=== PATIENT | female | born 1970 | race Caucasian/White ===

== ENCOUNTER 2019-03-14 17:33 | Outpatient (CLI) | payer OTHER, SELFPAY ==
--- NOTE | ~2019-03-14 | CT_ITS ---
EXAMINATION: CT abdomen pelvis w con DATE: 03/14/2019 18:11 INDICATION: Diarrhea. Lower abdominal pain. TECHNIQUE: Computed tomography (CT) of the abdomen and pelvis was performed with 100 mL Omnipaque-350 intravenous contrast. Automated exposure control and iterative reconstruction technique were employe d. The dose-length product was 880.07 mGy-cm. COMPARISON: None FINDINGS: Subtle mosaic attenuation in the dependent aspect of the lower lobes likely minimal dependent atelect asis with intervening subsegmental air trapping related to small airway disease. Heart size is normal . No pericardial or pleural effusion. Liver, gallbladder, spleen, pancreas, bilateral adrenal glands and right kidney are normal. Regions of cortical scarring scattered throughout the left kidney, likel y sequela of prior infection or infarction. Appendix is not visualized likely surgically absent with suture line at the tip of the cecum. No bowel obstruction or abnormal bowel wall thickening. Bladder is normal. The uterus is not identified and has likely been surgically resected. No free intraperiton eal gas or fluid. No pathologically enlarged abdominal or pelvic lymphadenopathy. Mild lumbar spondyl osis. IMPRESSION: 1. No acute intra-abdominal/pelvic process. Reviewed, dictated and finalized at location A. WASHING MACHINE REPAIRER
[2019-03-14 18:00] LABS: Blood Urea Nitrogen 21 mg/dL (8-26); Estimated Glomerular Filt Rate > 60
== END 2019-03-14 17:34 | disposition home or self-care (01) ==
LOC: ANHIMG 17:40
PROVIDERS: PCP Family Medicine; Visit Provider Nurse Practitioner Family
DX: R10.9 Unspecified abdominal pain (principal)
CPT/HCPCS: 74177; Q9967

== ENCOUNTER 2020-03-09 11:14 | Outpatient (CLI) | payer OTHER, SELFPAY ==
--- NOTE | ~2020-03-09 | XR_ITS ---
XR foot RT min 3V DATE: 03/09/2020 11:53 INDICATION: Right lateral foot pain. TECHNIQUE: 4 views COMPARISON: None FINDINGS: 2 screws are noted traversing the first tarsometatarsal joint. Plantar calcaneal enthesopathy. Hallux valgus and bunion deformity. Osteoarthritis at the first metatarsophalangeal joint. No fracture or dislocation, periosteal reaction or bone destruction. IMPRESSION: Status post surgical fusion at the first tarsometatarsal joint Hallux valgus and bunion deformity Osteoarthritis at first metatarsophalangeal joint Plantar calcaneal enthesopathy Reviewed, dictated and finalized at location A. R GLASS WORKER
[2020-03-09 11:43] LABS: Basophils Absolute Auto 0.1 K/mm3 (0.0-0.1); Basophils Percent Auto 0.9 % (0.2-1.2); Eosinophils Absolute Auto 0.4 K/mm3 (0-0.3); Eosinophils Percent Auto 5.6 % (0-4.4); Hematocrit 41.4 % (37.0-47.0); Hemoglobin 14.2 g/dL (12.0-15.0); Immature Granulocyte Absolute 0.01 K/mm3 (0.00-0.031); Immature Granulocyte Percent A 0.2 % (0-0.5); Lymphocytes Absolute Auto 2.08 K/mm3 (0.9-3.2); Lymphocytes Percent Auto 32.5 % (18.3-44.2); Mean Corpuscular HGB Conc 34.3 g/dl (32-36); Mean Corpuscular Hemoglobin 32.6 pg (26-34); Mean Platelet Volume 9.6 fl (7.4-10.4); Monocytes Absolute Auto 0.7 K/mm3 (0.1-0.6); Monocytes Percent Auto 10.5 % (2.6-8.5); Neutrophils Absolute Auto 3.2 K/mm3 (1.3-6.7); Neutrophils Percent Auto 50.3 % (45.5-73.1); Platelet Count Result 339 k/mm3 (150-375); Red Blood Count 4.36 M/mm3 (4.2-5.4); Red Cell Distribution Width 12.8 % (11.5-14.5); White Blood Count 6.4 K/mm3 (4.5-10.0)
[2020-03-09 12:10] LABS: LDL Cholesterol Direct 152 mg/dL
[2020-03-09 12:20] LABS: Alanine Aminotransferase 21 U/L (4-35); Albumin Level 4.5 g/dL (3.5-5.1); Alkaline Phosphatase 66 U/L (38-126); Anion Gap 2 mmol/L (8-16); Aspartate Amino Transferase 29 U/L (14-36); Bilirubin,Total 0.6 mg/dL (0.2-1.3); Blood Urea Nitrogen 19 mg/dL (7-17); Calcium 9.4 mg/dL (8.4-10.2); Carbon Dioxide 28 mmol/L (22-30); Chloride 105 mmol/L (98-107); Cholesterol 221 mg/dL (0-200); Estimated Glomerular Filt Rate > 60; Glucose 94 mg/dL (65-105); HDL Direct 43 mg/dL; Potassium 4.2 mmol/L (3.4-5.0); Sodium 135 mmol/L (137-145); Triglycerides 110 mg/dL (<150)
== END 2020-03-09 11:15 | disposition home or self-care (01) ==
PROVIDERS: PCP Family Medicine; Visit Provider Physician Assistant
DX: M79.671 Pain in right foot (principal); Z98.890 Other specified postprocedural states; I10 Essential (primary) hypertension; Z13.220 Encounter for screening for lipoid disorders; R53.83 Other fatigue
CPT/HCPCS: 36415; 73630; 80053; 80061; 84443; 85025

== ENCOUNTER 2021-01-27 17:31 | Outpatient (CLI) | payer OTHER, SELFPAY ==
[2021-01-27 18:05] LABS: Basophils Absolute Auto 0.1 K/mm3 (0.0-0.1); Basophils Percent Auto 0.5 % (0.2-1.2); Eosinophils Absolute Auto 0.4 K/mm3 (0-0.3); Hematocrit 41.1 % (37.0-47.0); Hemoglobin 13.9 g/dL (12.0-15.0); Immature Granulocyte Absolute 0.02 K/mm3 (0.00-0.031); Immature Granulocyte Percent A 0.2 % (0-0.5); Lymphocytes Absolute Auto 2.39 K/mm3 (0.9-3.2); Lymphocytes Percent Auto 23.3 % (18.3-44.2); Mean Corpuscular HGB Conc 33.8 g/dl (32-36); Mean Corpuscular Hemoglobin 32.4 pg (26-34); Mean Corpuscular Volume 95.8 fl (80-100); Mean Platelet Volume 9.7 fl (7.4-10.4); Monocytes Absolute Auto 0.9 K/mm3 (0.1-0.6); Monocytes Percent Auto 8.9 % (2.6-8.5); Neutrophils Absolute Auto 6.5 K/mm3 (1.3-6.7); Neutrophils Percent Auto 63.1 % (45.5-73.1); Platelet Count Result 352 k/mm3 (150-375); Red Blood Count 4.29 M/mm3 (4.2-5.4); Red Cell Distribution Width 13.4 % (11.5-14.5); White Blood Count 10.3 K/mm3 (4.5-10.0)
[2021-01-27 18:08] LABS: Alanine Aminotransferase 20 U/L (4-35); Albumin Level 4.7 g/dL (3.5-5.1); Alkaline Phosphatase 96 U/L (38-126); Anion Gap 7 mmol/L (8-16); Aspartate Amino Transferase 27 U/L (14-36); Bilirubin,Total 0.3 mg/dL (0.2-1.3); Blood Urea Nitrogen 14 mg/dL (7-17); Calcium 9.4 mg/dL (8.4-10.2); Carbon Dioxide 26 mmol/L (22-30); Chloride 101 mmol/L (98-107); Cholesterol 235 mg/dL (0-200); Estimated Glomerular Filt Rate > 60; Glucose 118 mg/dL (65-110); HDL Direct 50 mg/dL; Potassium 3.9 mmol/L (3.4-5.0); Sodium 134 mmol/L (137-145); Triglycerides 205 mg/dL (<150)
[2021-01-27 18:19] LABS: LDL Cholesterol Direct 144 mg/dL
== END 2021-01-27 17:32 | disposition home or self-care (01) ==
LOC: ANHLAB 17:35
PROVIDERS: PCP Family Medicine; Visit Provider Nurse Practitioner Gerontology
DX: I10 Essential (primary) hypertension (principal)
CPT/HCPCS: 36415; 80053; 80061; 85025

== ENCOUNTER 2021-02-24 13:44 | Outpatient (CLI) | payer OTHER, SELFPAY ==
[2021-02-24 14:28] LABS: Uric Acid 6.1 mg/dL (2.5-7.5)
[2021-02-24 14:42] LABS: Basophils Absolute Auto 0.1 K/mm3 (0.0-0.1); Basophils Percent Auto 0.5 % (0.2-1.2); Eosinophils Absolute Auto 0.1 K/mm3 (0-0.3); Eosinophils Percent Auto 1.1 % (0-4.4); Hematocrit 42.2 % (37.0-47.0); Hemoglobin 14.4 g/dL (12.0-15.0); Immature Granulocyte Absolute 0.04 K/mm3 (0.00-0.031); Immature Granulocyte Percent A 0.4 % (0-0.5); Lymphocytes Absolute Auto 1.04 K/mm3 (0.9-3.2); Lymphocytes Percent Auto 10.8 % (18.3-44.2); Mean Corpuscular HGB Conc 34.1 g/dl (32-36); Mean Corpuscular Volume 96.6 fl (80-100); Mean Platelet Volume 9.6 fl (7.4-10.4); Monocytes Absolute Auto 0.3 K/mm3 (0.1-0.6); Monocytes Percent Auto 3.1 % (2.6-8.5); Neutrophils Absolute Auto 8.1 K/mm3 (1.3-6.7); Neutrophils Percent Auto 84.1 % (45.5-73.1); Platelet Count Result 380 k/mm3 (150-375); Red Blood Count 4.37 M/mm3 (4.2-5.4); Red Cell Distribution Width 13.2 % (11.5-14.5); White Blood Count 9.6 K/mm3 (4.5-10.0)
[2021-02-24 15:10] LABS: Erythrocyte Sedimentation Rate 17 mm/hr (0-20)
[2021-02-25 00:04] LABS: Rheumatoid Factor < 8.6 IU/ML (<12)
[2021-02-27 22:29] LABS: Anti Cyclic Citrullinated Pept <16 Units (<20)
== END 2021-02-24 13:45 | disposition home or self-care (01) ==
PROVIDERS: PCP Family Medicine; Visit Provider Family Medicine
DX: M65.871 Other synovitis and tenosynovitis, right ankle and foot (principal); M06.4 Inflammatory polyarthropathy
CPT/HCPCS: 36415; 84550; 85025; 85652; 86038; 86140; 86200; 86430

== ENCOUNTER 2021-06-28 11:16 | Outpatient (CLI) | payer OTHER, SELFPAY ==
[2021-06-28 12:09] LABS: Hematocrit 43.1 % (37.0-47.0); Hemoglobin 14.5 g/dL (12.0-15.0); Mean Corpuscular HGB Conc 33.6 g/dl (32-36); Mean Corpuscular Volume 95.1 fl (80-100); Mean Platelet Volume 9.5 fl (7.4-10.4); Platelet Count Result 422 k/mm3 (150-375); Red Blood Count 4.53 M/mm3 (4.2-5.4); Red Cell Distribution Width 13.6 % (11.5-14.5); White Blood Count 11.9 K/mm3 (4.5-10.0)
[2021-06-28 12:26] LABS: CRP 1.9 mg/dL (<1.0); Creatine Kinase 62 U/L (30-135)
[2021-06-28 12:38] LABS: Hemoglobin A1C 5.5 % (<5.7)
[2021-06-28 13:06] LABS: Free T4 Free Thyroxine 1.46 ng/mL (0.78-2.19)
[2021-06-28 13:18] LABS: Hepatitis B Surface Antigen Negative (Negative)
[2021-06-28 13:23] LABS: HAV RESULT Negative (Negative); Hepatitis B Core IgM Result Negative (Negative)
[2021-06-28 13:29] LABS: Folic Acid 17.9 ng/mL (2.76->20)
[2021-06-28 13:35] LABS: Hepatitis B Surface Anti Res Negative; Hepatitis C Virus Antibody Negative (Negative)
[2021-06-28 13:53] LABS: Erythrocyte Sedimentation Rate 17 mm/hr (0-20)
[2021-06-28 15:22] LABS: Hepatitis C Virus Antibody Negative (Negative)
[2021-07-01 07:16] LABS: Alanine Aminotransferase 19 U/L (6-35); Albumin Level 4.5 g/dL (3.5-5.1); Alkaline Phosphatase 99 U/L (38-126); Anion Gap 9 mmol/L (8-16); Aspartate Amino Transferase 32 U/L (14-36); Bilirubin,Total 0.5 mg/dL (0.2-1.3); Blood Urea Nitrogen 15 mg/dL (7-17); Calcium 9.3 mg/dL (8.4-10.2); Carbon Dioxide 24 mmol/L (22-30); Chloride 104 mmol/L (98-107); Estimated Glomerular Filt Rate > 60; Glucose 92 mg/dL (65-110); Potassium 4.5 mmol/L (3.4-5.0); Sodium 137 mmol/L (137-145)
[2021-07-01 12:52] LABS: NIL 0.01 IU/mL; Quantiferon TB Plus, 1T NEGATIVE (NEGATIVE); TB1-NIL 0.01 IU/mL; TB2-NIL 0.01 IU/mL
[2021-07-01 13:30] LABS: Hepatitis C RNA, Quant PCR <15 IU/mL
[2021-07-02 15:28] LABS: Albumin 4.2 g/dL (3.8-4.8); Alpha 1 Globulin 0.5 g/dL (0.2-0.3); Alpha 2 Globulin 0.9 g/dL (0.5-0.9); Beta 1 Globulin 0.4 g/dL (0.4-0.6); Gamma Globulin 1.6 g/dL (0.8-1.7)
[2021-07-10 14:57] LABS: Reference Lab Test Result <0.2
== END 2021-06-28 11:17 | disposition home or self-care (01) ==
LOC: ANHLAB 11:18
PROVIDERS: PCP Family Medicine; Visit Provider Internal Medicine Rheumatology
DX: G62.9 Polyneuropathy, unspecified (principal); R53.83 Other fatigue; M19.90 Unspecified osteoarthritis, unspecified site; M79.10 Myalgia, unspecified site; R73.09 Other abnormal glucose; E55.9 Vitamin D deficiency, unspecified; E53.8 Deficiency of other specified B group vitamins; D50.9 Iron deficiency anemia, unspecified
CPT/HCPCS: 36415; 80053; 80074; 82306; 82550; 82607; 82728; 82746; 83036; 83520; 83521; 83735; 84155; 84165; 84439; 84443; 84550; 85027; 85652; 86038; 86140; 86334; 86335; 86430; 86480; 86705; 86706; 86803; 87340; 87517; 87522

== ENCOUNTER 2021-07-13 11:30 | Outpatient (CLI) | payer OTHER, SELFPAY ==
--- NOTE | ~2021-07-13 | XR_ITS ---
EXAM: XR knee RT 2V DATE: 07/13/2021 11:49 HISTORY: multiple joint pain . COMPARISON: None available. FINDINGS: Decreased mineralization. No fracture or dislocation. No lytic or blastic lesion. Moderate medial joint space narrowing. Mild tricompartmental osteophytosis. No erosion or periosteal change. Soft tissues within normal limits. IMPRESSION: No acute osseous finding in the right knee. Tricompartmental osteoarthritis, moderate in the medial compartment. Reviewed, dictated and finalized at location K. IMPRESSION: No acute osseous finding in the right knee. Tricompartmental osteoa rthritis, moderate in the medial compartment.
--- NOTE | ~2021-07-13 | XR_ITS ---
EXAMINATION: XR hip RT min 2V DATE: 07/13/2021 11:49 INDICATION: Right hip pain. TECHNIQUE: 2 views of right hip were obtained. COMPARISON: None. FINDINGS: Bone alignment is normal. No fracture. There is mild right hip osteoarthritis. IMPRESSION: 1. Mild right hip osteoarthritis. Reviewed, dictated and finalized at location A.
--- NOTE | ~2021-07-13 | XR_ITS ---
EXAMINATION: XR ankle RT 2V DATE: 07/13/2021 11:49 INDICATION: Multiple joint pain. TECHNIQUE: 2 views of right ankle were obtained. COMPARISON: Right hip radiographs 03/09/2020 FINDINGS: Bone alignment is normal. No fracture. There are changes of arthrodesis procedure at first tarsometatarsal joint with 2 screws. There is mild osteoarthritis of talonavicular joint. There is an enthesophyte at plantar aspect of calcaneal tuberosity. Ankle soft tissue swelling is noted. IMPRESSION: 1. Mild osteoarthritis of talonavicular joint. Reviewed, dictated and finalized at location A.
== END 2021-07-13 11:31 | disposition home or self-care (01) ==
PROVIDERS: PCP Family Medicine; Visit Provider Internal Medicine Rheumatology
DX: M16.11 Unilateral primary osteoarthritis, right hip (principal); M19.071 Primary osteoarthritis, right ankle and foot; M17.11 Unilateral primary osteoarthritis, right knee
CPT/HCPCS: 73502; 73560; 73600

== ENCOUNTER 2021-09-17 08:44 | Outpatient (CLI) | payer OTHER, SELFPAY ==
--- NOTE | ~2021-09-17 | MM_ITS ---
EXAMINATION: MM screening [facility] BI w jenifer HISTORY: Screening mammogram TECHNIQUE: Craniocaudal and mediolateral oblique 3-D tomosynthesis images were obtained and synthetic 2-D images were generated. CAD analysis was submitted and interpreted. COMPARISON: 09/29/2018, 02/27/2016, 03/07/2015 BREAST PARENCHYMAL COMPOSITION: There are scattered areas of fibroglandular density. FINDINGS: There is no suspicious mass, calcification, or architectural distortion to suggest malignan cy in either breast. There has been no suspicious interval change. IMPRESSION: 1. No mammographic evidence of malignancy. 2. Recommend routine screening mammography in one year. BI-RADS Category 1: Negative Reviewed, dictated and finalized at location A.
== END 2021-09-17 08:45 | disposition home or self-care (01) ==
PROVIDERS: PCP Family Medicine; Visit Provider Family Medicine
DX: Z12.31 Encounter for screening mammogram for malignant neoplasm of breast (principal)
CPT/HCPCS: 77063; 77067

== ENCOUNTER 2022-02-11 14:18 | Outpatient (CLI) | payer OTHER, SELFPAY ==
--- NOTE | ~2022-02-11 | XR_ITS ---
XR ankle LT min 3V DATE: 02/11/2022 14:46 INDICATION: Fall. Lateral ankle and foot pain TECHNIQUE: 4 views COMPARISON: None FINDINGS: There is mild lateral soft tissue swelling. No fracture or dislocation of the ankle or disr uption of the ankle mortise is detected. No periosteal reaction or bone destruction. Moderate plantar calcaneal enthesopathy without erosive change or periostitis. IMPRESSION: Mild lateral soft tissue swelling; no fracture or dislocation of the left ankle is detect ed Plantar calcaneal enthesopathy Reviewed, dictated and finalized at location B. O MECHANIC APPRENTICE IMPRESSION: Mild lateral soft tissue swelling; no fracture or dislocation of th e left ankle is detected Plantar calcaneal enthesopathy
--- NOTE | ~2022-02-11 | XR_ITS ---
[id number]_CR DATE: 02/11/2022 14:47 INDICATION: Fall. Left chest wall pain. TECHNIQUE: PA chest. 3 views of the left ribs. COMPARISON: None FINDINGS: There are anterior mildly displaced recent rib fractures are noted involving the left seven th, eighth and ninth ribs. Normal heart size. No hilar or mediastinal enlargement. No pulmonary infiltrate or consolidation, ple ural effusion or pulmonary vascular congestion or pneumothorax is detected. IMPRESSION: Recent very anterior mildly displaced left seventh, eighth and ninth rib fractures Reviewed, dictated and finalized at Location A. Reviewed, dictated and finalized at location B. BOARD DESIGNER IMPRESSION: Recent very anterior mildly displaced left seventh, eighth and nint h rib fractures
--- NOTE | ~2022-02-11 | XR_ITS ---
EXAMINATION: XR foot LT min 3V DATE: 02/11/2022 14:46 INDICATION: Left foot pain. Fall. TECHNIQUE: 4 views of left foot were obtained. COMPARISON: None. FINDINGS: There is moderate hallux valgus. There is a comminuted, predominantly oblique fracture of d iaphysis of fifth metatarsal. The main distal fracture fragment demonstrates 3 mm dorsomedial displac ement. There is mild osteoarthritis of first metatarsophalangeal joint and talonavicular joint. There is an enthesophyte at plantar aspect of calcaneal tuberosity. IMPRESSION: 1. Comminuted fracture of diaphysis of fifth metatarsal. Reviewed, dictated and finalized at location A. 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
== END 2022-02-11 14:19 | disposition home or self-care (01) ==
PROVIDERS: PCP Family Medicine; Visit Provider Nurse Practitioner Gerontology
DX: S92.352A Displaced fracture of fifth metatarsal bone, left foot, initial encounter for closed fracture (principal); M25.473 Effusion, unspecified ankle; R07.81 Pleurodynia; M77.32 Calcaneal spur, left foot; T14.90XA Injury, unspecified, initial encounter
CPT/HCPCS: 71101; 73610; 73630

== ENCOUNTER 2022-02-17 14:56 | Outpatient (CLI) | payer OTHER, SELFPAY ==
--- NOTE | ~2022-02-17 | DEXA_ITS ---
Bone Density Report Name: PAOLA CRAFT Age: 51 Sex: Female Ethnicity: White Date of : 1970 Indication: postmenopausal; screening for osteoporosis; height loss; history of glucocorticoids; prior fracture; hysterectomy; rheumatoid arthritis; Referring Provider: ELISA SHARP Study: Bone densitometry was performed. Exam Date: February 17, 2022 Accession number: [id number] Bone Density: Region BMD T-score Z-score Classification AP Spine(L1-L4) 0.893 -1.4 -0.6 Osteopenia Femoral Neck (Left) 0.688 -1.5 -0.7 Osteopenia Total Hip (Left) 0.885 -0.5 0.0 Normal Femoral Neck (Right) 0.677 -1.5 -0.8 Osteopenia Total Hip (Right) 0.839 -0.8 -0.4 Normal Total Hip Mean 0.862 -0.7 -0.2 Normal World Health Organization criteria for BMD impression classify patients as: Normal (T-score at or above -1.0), Osteopenia (T-score between -1.0 and -2.5), or Osteoporosis (T-score at or below -2.5). 10-year Fracture Risk(1): Major Osteoporotic Fracture 18% Hip Fracture 3.6% Reported Risk Factors: [place] (), Neck BMD=0.677, BMI=30.2, previous fracture, smoking, glucocorticoids, rheumatoid arthritis (1) FRAX(R) Version 3.08. Fracture probability calculated for an untreated patient. Fracture probability may be lower if the patient has received treatment. Clinical Information Provided by Patient: Has had a low trauma fracture Smokes Has taken Glucocorticoids Has rheumatoid arthritis Has the following medical conditions: Hysterectomy Patient maximum height was 67 Menopause Age: 43 Drinks caffeinated beverages Onset of menses at age 14 Number of children 0 Impression: The patient has low bone mass, based on the Left Femoral Neck T-score. The patient has an estimated ten-year risk of hip fracture of 3.6% and an estimated ten-year risk of major fracture of 18%, based on the WHO FRAX algorithm. The patient has risk factors, including: smoking, previous fracture, history of glucocorticoid therapy. Discussion: BONE DENSITY IS LOW AT ONE OR MORE SKELETAL SITES. THE PATIENT'S BMD AND CLINICAL RISK FACTORS CONTRIBUTE TO THIS PATIENT'S INCREASED RISK OF FRACTURE. This patient's lowest T-score is low at one or more skeletal sites. It meets the World Health Organization's (WHO) criteria for ?low bone mass? (T-score between -1.0 and -2.5). The patient's 10-year risk of hip fracture as calculated by FRAX exceeds the threshold where pharmacological therapy is recommended by the National Osteoporosis Foundation (NOF). However, all treatment decisions require clinical judgment and consideration of individual patient factors, including patient preferences, comorbidities, previous drug use, risk factors not captured in the FRAX model (e.g., frailty, falls, vitamin D deficiency, increased bone turnover
== END 2022-02-17 14:57 | disposition home or self-care (01) ==
PROVIDERS: PCP Family Medicine; Visit Provider Nurse Practitioner Gerontology
DX: Z78.0 Asymptomatic menopausal state (principal); M85.88 Other specified disorders of bone density and structure, other site; M85.852 Other specified disorders of bone density and structure, left thigh; M85.851 Other specified disorders of bone density and structure, right thigh
CPT/HCPCS: 77080

== ENCOUNTER 2023-02-10 09:18 | Outpatient (CLI) | payer OTHER, SELFPAY ==
[2023-02-10 10:07] LABS: Basophils Absolute Auto 0.1 K/mm3 (0.0-0.1); Basophils Percent Auto 0.7 % (0.2-1.2); Eosinophils Absolute Auto 0.3 K/mm3 (0-0.3); Eosinophils Percent Auto 2.7 % (0-4.4); Hematocrit 42.6 % (37.0-47.0); Hemoglobin 13.9 g/dL (12.0-15.0); Immature Granulocyte Absolute 0.07 K/mm3 (0.00-0.031); Immature Granulocyte Percent A 0.7 % (0-0.5); Lymphocytes Absolute Auto 3.11 K/mm3 (0.9-3.2); Mean Corpuscular HGB Conc 32.6 g/dl (32-36); Mean Corpuscular Hemoglobin 32.3 pg (26-34); Mean Corpuscular Volume 98.8 fl (80-100); Monocytes Absolute Auto 0.9 K/mm3 (0.1-0.6); Monocytes Percent Auto 9.4 % (2.6-8.5); Neutrophils Absolute Auto 5.6 K/mm3 (1.3-6.7); Neutrophils Percent Auto 55.5 % (45.5-73.1); Platelet Count Result 304 k/mm3 (150-375); Red Blood Count 4.31 M/mm3 (4.2-5.4)
[2023-02-10 10:24] LABS: Alanine Aminotransferase 26 U/L (6-35); Albumin Level 4.3 g/dL (3.5-5.1); Alkaline Phosphatase 55 U/L (38-126); Anion Gap 6 mmol/L (8-16); Aspartate Amino Transferase 29 U/L (14-36); Bilirubin,Total 0.5 mg/dL (0.2-1.3); Blood Urea Nitrogen 24 mg/dL (7-17); Calcium 9.2 mg/dL (8.4-10.2); Carbon Dioxide 26 mmol/L (22-30); Chloride 104 mmol/L (98-107); Cholesterol 255 mg/dL (0-200); Estimated Glomerular Filt Rate > 60; Glucose 87 mg/dL (65-110); HDL Direct 68 mg/dL; Sodium 136 mmol/L (137-145); Triglycerides 111 mg/dL (<150)
[2023-02-10 10:35] LABS: LDL Cholesterol Direct 136 mg/dL
== END 2023-02-10 09:19 | disposition home or self-care (01) ==
PROVIDERS: PCP Family Medicine; Visit Provider Physician Assistant
DX: E78.5 Hyperlipidemia, unspecified (principal); F17.210 Nicotine dependence, cigarettes, uncomplicated; I10 Essential (primary) hypertension; D72.829 Elevated white blood cell count, unspecified
CPT/HCPCS: 36415; 80053; 80061; 84443; 85025